=== PATIENT | female | born 1945 | race Caucasian/White ===

== ENCOUNTER 2016-06-06 11:16 | Emergency (ER) | payer OTHER ==
[~2016-06-06] VITALS: Ht 162.6 cm; Wt 67.0 kg
[~2016-06-06 11:16] MED LIST: FERR15DR PO; GABA100C4 PO; PRED20 PO; TYLE500T PO
[2016-06-06 11:21] VITALS: BP 137/84; PULSE 113; RESP 16; TEMP 98.2; O2SAT 97
--- NOTE | 2016-06-06 12:06 | PD ---
HPI Chief Complaint: Injury Time Seen by Provider: 12:06 Travel History International Travel<30 days: No Contact w/Intl Traveler<30days: No Traveled to known affect area: No History of Present Illness HPI 71 year old [id number] female presents to the ED for evaluation of 8/ 10 right wrist and groin pain following a fall yesterday afternoon. The patient states that she had been moving furniture all day, attempted to move the loveseat, and fell. She states that she landed on her right wrist and hip. She denies hitting her head or loss of consciousness. She has been ambulatory with a crutch. She treated at home with ice. She denies previous injury to the wrist or hip. PFSH Past Medical History Autoimmune Disease: Yes (LUPUS, POLYMIALGA RA) Diminished Hearing: No Immunizations Current: No Tetanus Vaccination: > 5 Years Influenza Vaccination: No Past Surgical History Surgical History: No Previous Surgery Social History Alcohol Use: No Tobacco Use: No Substance Use: No Allergies-Medications (Allergen,Severity, Reaction): Coded Allergies: Codeine (Verified Allergy, Severe, Nausea/Vomiting, 06/06/16) Tramadol (Verified Allergy, Severe, Nausea/Vomiting, 06/06/16) Aspirin (Verified Allergy, Intermediate, Tachycardia, 06/06/16) Reported Meds & Prescriptions Reported Meds & Active Scripts Active Naprosyn (Naproxen) 500 Mg Tab 500 Mg PO BID Review of Systems Except as stated in HPI: all other systems reviewed are Neg Physical Exam Narrative GENERAL: Well-nourished, well-developed white female in no acute distress. SKIN: Warm and dry. HEAD: Normocephalic. EYES: No scleral icterus. No injection or drainage. NECK: Supple, trachea midline. No JVD or lymphadenopathy. CARDIOVASCULAR: Regular rate and rhythm without murmurs, gallops, or rubs. RESPIRATORY: Breath sounds equal bilaterally. No accessory muscle use. GASTROINTESTINAL: Abdomen soft, non-tender, nondistended. MUSCULOSKELETAL: No cyanosis, or edema. Focused right lower extremity exam: 5/5 strength of plantarflexion, dorsiflexion , knee flexion, hip flexion Focused right upper extremity exam: 2+ radial pulse. Mild edema in the radial aspect of the wrist. Positive snuffbox tenderness. Positive tenderness to palpation at the base of the thumb. Patient retains active flexion, extension of the wrist and fingers. Sensation intact to light touch distally. Cap refill less than 2 seconds. BACK: Nontender without obvious deformity. No CVA tenderness. Data Data Last Documented VS Vital Signs Date Time Temp Pulse Resp B/P Pulse Ox O2 Delivery O2 Flow Rate FiO2 06/06/16 11:33 Room Air 06/06/16 11:21 98.2 113 16 137/84 97 Orders Hand, Complete ([id number]) (06/06/16 12:11) Hip, Uni(Ap&Lat) W Ap Pelvis (06/06/16 12:11) Wrist, Complete ([id number]) (06/06/16 12:11) Ice/Cold Pack (06/06/16 12:11) Ct Hip W/O Contrast (06/06/16 ) Splint Or Brace Apply/Monitor (06/06/16 14:10) Fiberglass Thumb Spica Adult (06/06/16 ) MDM Medical Decision Making Medical Screen Exam Complete: Yes Emergency Medical Condition: Yes Differential Diagnosis Contusion versus musculoskeletal pain versus scaphoid fracture versus wrist fracture versus hip fracture versus Narrative Course 71 year old [id number] female presents to the ED for evaluation of right wrist and groin pain following a fall yesterday afternoon. The patient states that she had been moving furniture all day, attempted to move the loveseat, and fell. She states that she landed on her right wrist and hip. She denies hitting her head or loss of consciousness. She has been ambulatory with a crutch. Vitals reviewed. Physical exam reveals swelling and tenderness to palpation of the wrist and tenderness to palpation of the right hip. She does have snuffbox tenderness of the wrist which is concerning for scaphoid fracture. I offered her pain medications which she declined. X-ray of the wrist reveals no fracture per radiology read. X-ray and CT of the hip reveals no fracture per radiology read. She was placed in a thumb spica and referred to on-call orthopedist for follow-up of the wrist pain. She was prescribed a short course of naproxen. She indicated understanding of the instructions and is amenable to plan of care. She is stable and discharged home. Diagnosis Primary Impression: Right groin pain Additional Impressions: Right wrist pain Arthritis of right wrist Referrals: Eulogio Sánchez MD Patient Instructions: General Instructions, Musculoskeletal Pain (ED) Additional Instructions: Rest, hydrate. Resume normal, gentle activities as tolerated. Do not remove the splint until cleared by the orthopedist. No strenuous physical activities for the next few days You need rest, ibuprofen, fluids. Take Naprosyn twice a day as prescribed. Applying ice or heat to areas of soreness may help to improve your pain. Do not apply ice/ heat for longer than 20 m/h. Follow-up with the orthopedist this week. Return to the ED for any urgent or emergent medical condition. Med/Other Pt SpecificInfo: Prescription(s) given Scripts Naproxen (Naprosyn)500 Mg Nqt182 Mg PO BID #12 TAB Ref 0 Prov:Ida Gordon MD 06/06/16 Disposition: 01 DISCHARGE HOME Condition: Stable Tammy Mcdaniels Jun 06, 2016 12:06
--- NOTE | 2016-06-06 12:59 | RADHPO ---
EXAM DATE/TIME: 06/06/2016 12:39 [facility] COMPARISON: No previous studies available for comparison. INDICATIONS : Right hip pain after falling. MEDICAL HISTORY : None. SURGICAL HISTORY : None. ENCOUNTER: Initial ACUITY: 2 days PAIN SCORE: 8/10 LOCATION: Right anterior hip FINDINGS: Examination of the right hip was performed with AP Pelvis. The primary and secondary trabecular angeline pearl of the femoral neck is intact. The hip joint is of normal width without significant sclerosis or bony hypertrophy. The acetabulum is grossly intact. CONCLUSION: Negative for fracture or dislocation. Follow up in 7-10 days is suggested if symptoms persist. Lester Quintero MD FACR on June 06, 2016 at 12:57 Board Certified Radiologist. This report was verified electronically.
--- NOTE | 2016-06-06 13:00 | RADHPO ---
EXAM DATE/TIME: 06/06/2016 12:29 [facility] COMPARISON: No previous studies available for comparison. INDICATIONS : Right wrist pain after moving furniture. MEDICAL HISTORY : None. SURGICAL HISTORY : None. ENCOUNTER: Initial ACUITY: 2 days PAIN SCORE: 8/10 LOCATION: Right posterior wrist FINDINGS: There is deformity of the distal radius from apparent previous fracture. Degenerative changes are se en in the carpals as well as in the radial carpal joint. Alignment is anatomic. Fracture is not [place] reciated. CONCLUSION: Degenerative changes without fracture. Lester Quintero MD FACR on June 06, 2016 at 12:53 Board Certified Radiologist. This report was verified electronically.
--- NOTE | 2016-06-06 13:02 | RADHPO ---
EXAM DATE/TIME: 06/06/2016 12:32 [facility] COMPARISON: No previous studies available for comparison. INDICATIONS : Right hand pain after moving furniture MEDICAL HISTORY : None. SURGICAL HISTORY : None. ENCOUNTER: Initial ACUITY: 2 days PAIN SCORE: 8/10 LOCATION: Right posterior hand FINDINGS: Extensive degenerative changes are seen at the first radiocarpal joint. Alignment is anatomic. Frac ture is not appreciated. Degenerative changes are seen in the DIP joint. CONCLUSION: Degenerative change without fracture. Lester Quintero MD FACR on June 06, 2016 at 12:54 Board Certified Radiologist. This report was verified electronically.
--- NOTE | 2016-06-06 13:54 | RADHPO ---
EXAM DATE/TIME: 06/06/2016 13:23 [facility] COMPARISON: No previous studies available for comparison. INDICATIONS : Lifting injury last night. Right hip pain. RADIATION DOSE: 15.45 CTDIvol (mGy) MEDICAL HISTORY : Lupus. SURGICAL HISTORY : None. ENCOUNTER: Initial ACUITY: 2 days PAIN SCALE: 4/10 LOCATION: Right hip TECHNIQUE: Volumetric scanning of the hip was performed. Using automated exposure control and adjustment of the mA and/or kV according to patient size, radiation dose was kept as low as reasonably achievable to o btain optimal diagnostic quality images. FINDINGS: BONES: No evidence of fracture. Alignment is within normal limits. JOINTS: No evidence of joint narrowing or effusion. SOFT TISSUES: Muscles, tendons and neurovascular structures are grossly unremarkable. No evidence of mass, organize d fluid collection, or foreign body. CONCLUSION: No fracture is seen. Emeka Neville MD on June 06, 2016 at 13:50 Board Certified Radiologist. This report was verified electronically.
[2016-06-06] MEDS ORDERED: NAPR500 PO (14:03)
== END 2016-06-06 14:35 | disposition home or self-care (01) ==
LOC: PHEFT 11:16
DX: R10.31 Right lower quadrant pain (principal); M25.531 Pain in right wrist; M19.031 Primary osteoarthritis, right wrist; W01.0XXA Fall on same level from slipping, tripping and stumbling without subsequent striking against object, initial encounter; X50.0XXA Overexertion from strenuous movement or load, initial encounter; Y92.009 Unspecified place in unspecified non-institutional (private) residence as the place of occurrence of the external cause; M32.9 Systemic lupus erythematosus, unspecified
CPT/HCPCS: 73110; 73130; 73502; 73700; 99284; L3808